=== PATIENT | female | born 2000 | race African-American/Black ===

== ENCOUNTER 2024-02-21 19:29 | Emergency (ER) | payer MEDICAID, OTHER ==
[~2024-02-21] VITALS: Ht 160 cm; Wt 60.0 kg
[2024-02-21 19:31] VITALS: O2SAT 99
[2024-02-21 20:15] LABS: CARBON DIOXIDE 24 mEq/L (21-32); CHLORIDE 103 mEq/L (98-107); POTASSIUM 3.5 mEq/L (3.5-5.1); SODIUM 135 mEq/L (136-145)
[2024-02-21 20:16] LABS: CALCIUM 9.4 mg/dL (8.7-10.4)
[2024-02-21 20:17] LABS: BASOPHILS % 0.3 % (0.0-2.0); EOSINOPHILS % 0.4 % (0.0-5.0); HEMATOCRIT. 37.3 % (36.0-48.0); HEMOGLOBIN. 12.7 g/dL (12.0-16.0); LYMPHOCYTES % 10.1 % (20.0-50.0); MEAN CORPUSCULAR HEMOGLOBIN 32.7 pg (28.0-32.0); MEAN CORPUSCULAR HGB CONC 34.2 g/dL (31.0-37.0); MEAN CORPUSCULAR VOLUME 95.8 fL (81.0-99.0); MEAN PLATELET VOLUME 8.4 fl (7.4-10.4); NEUTROPHILS % 80.2 % (40.0-76.0); PLATELET 247 x1000/uL (130-400); RED BLOOD CELL COUNT 3.89 mill/uL (4.2-5.4); RED CELL DISTRIBUTION WIDTH 13.4 % (11.6-14.6); WHITE BLOOD COUNT 7.7 x1000/uL (4.5-11.0)
[2024-02-21 20:20] LABS: CREATININE 0.6 mg/dL (0.6-1.0); GLUCOSE 76 mg/dL (70-105)
[2024-02-21] MEDS: SODIUM CHLORIDE 0.9% 1,000 ML IV ONE (20:20)
[2024-02-21] MEDS: ACETAMINOPHEN 325MG TABLET PO PRN (20:20)
[2024-02-21 20:22] LABS: ALANINE AMINOTRANSFERASE 55 IU/L (10-49); ALBUMIN 4.2 g/dL (3.2-4.8); ASPARTATE AMINOTRANSFERASE 43 IU/L (<34)
[2024-02-21 20:23] LABS: BILIRUBIN TOTAL 0.4 mg/dL (0.1-1.0); PROTEIN TOTAL 7.4 g/dL (6.0-8.3)
[2024-02-21 20:34] LABS: B-HCG QUANTITATIVE 9373 mIU/mL (<3)
[2024-02-21 20:36] LABS: UREA NITROGEN BLOOD < 5 mg/dL (9-23)
[2024-02-21 20:43] LABS: CLARITY URINE CLOUDY (CLEAR); COLOR URINE YELLOW (YELLOW); GLUCOSE URINE NEGATIVE (NEGATIVE); KETONES URINE 3+ (NEGATIVE); LEUKOCYTE ESTERASE URINE 3+ (NEGATIVE); NITRITE URINE NEGATIVE (NEGATIVE); OCCULT BLOOD URINE NEGATIVE (NEGATIVE); PH URINE 6.5 (4.5-8.0); PROTEIN URINE NEGATIVE (NEGATIVE); SPECIFIC GRAVITY URINE 1.007 (1.005-1.030); UROBILINOGEN URINE 0.2 E.U./dL (0.2-1.0)
[2024-02-21 20:58] LABS: BACTERIA URINE 2+; SQUAMOUS EPITHELIAL CELL URINE 1+ /lpf (RARE/1+)
[2024-02-21 20:59] LABS: WBC URINE 25-50 /hpf (0-2)
[2024-02-21 22:00] VITALS: BP 108/54; PULSE 87; RESP 15; TEMP 98.8
[2024-02-21] MEDS ORDERED: CEPH500C2 MT (22:01)
[2024-02-21] MEDS ORDERED: NIRM1TAB8 PO (22:01)
== END 2024-02-21 22:23 | disposition home or self-care (01) ==
LOC: ER 19:29
DX: O23.32 Infections of other parts of urinary tract in pregnancy, second trimester (principal); O26.892 Other specified pregnancy related conditions, second trimester; J45.909 Unspecified asthma, uncomplicated; Z3A.20 20 weeks gestation of pregnancy; Z20.822 Contact with and (suspected) exposure to COVID-19
CPT/HCPCS: 80053; 81003; 84702; 87430; 85025; 87086; 87070; 36415; 76830; 76856; 96360; 96361; 99284; 87426; J7030; Z7610